=== PATIENT | female | born 1975 | race Two or more races ===

== ENCOUNTER 2018-09-29 20:40 | Emergency (ER) | payer OTHER ==
--- NOTE | 2018-09-29 20:54 | EDPHY ---
H & P Time Seen by Provider: 09/29/18 20:53 Constitutional: Initial Vital Signs Temperature (C) 36.7 C 09/29/18 20:52 Heart Rate 102 H 09/29/18 20:52 Respiratory Rate 16 09/29/18 20:52 Blood Pressure 158/107 H 09/29/18 20:52 O2 Sat (%) 96 09/29/18 20:52 O2 Delivery Mode Room Air Allergies/Adverse Reactions: No Known Allergies Allergy (Unverified 09/29/18 20:58) Home Medications: Medication Instructions Recorded Cephalexin [Keflex (RX)] 500 mg PO TID #30 cap 09/29/18 Fluconazole 150 mg PO DAILY #7 tablet 09/29/18 Medical Decision Making ED Course/Re-evaluation: CHIEF COMPLAINT: Suprapubic pain. HISTORY OF PRESENT ILLNESS: This patient is a 43 year old female who presents with lower abdominal and suprapubic pain ongoing for five days. She has a sensation of pressure in her suprapubic area which sometimes radiates to her low back. She notes has had similar symptoms intermittently for many years. She additionally notes this sometimes seems associated with her scar from her cesarian section. She has been evaluated at [facility] in the past but these visits were inconclusive. Two days ago had vaginal discharge similar to fungal discharge. She does have burning discomfort in her vaginal area. She denies dysuria. She has tried OTC treatments, but these have not helped much. She denies fever, nausea, vomiting , diarrhea, hematuria, or other associated symptoms. REVIEW OF SYSTEMS: A comprehensive 10 system review of systems is otherwise negative aside from elements mentioned in the history of present illness and medical decision making. PHYSICAL EXAM: HR, BP, O2 Sat, RR. Temp noted General Appearance: Alert, well hydrated, appropriate, and non-toxic appearing. Head: Atraumatic without scalp tenderness or obvious injury Eyes: Pupils equal, round, reactive to light and accommodation, EOMI, no trauma , no injection. Ears: Clear bilaterally, no perforation, normal landmarks Nose: Atraumatic, no rhinorrhea, clear. Throat: There is no erythema or exudates, no lesions, normal tonsils, mucus membranes moist. Neck: Supple, nontender, no lymphadenopathy. Respiratory: No retractions, no distress, no wheezes, and no accessory muscle use. Lungs are clear to auscultation bilaterally. Cardiovascular: Regular rate and rhythm, no murmurs, rubs, or gallops. Bilateral carotid, radial, dorsalis pedis, and posterior tibial pulses intact. Good capillary refill all extremities. Gastrointestinal: Suprapubic tenderness. Abdomen is soft, non-distended, no masses, no rebound, no guarding, no peritoneal signs. Musculoskeletal: Normal active ROM of all extremities, atraumatic. Neurological: Alert, appropriate, and interactive. The patient has normal DTRs and non-focal cranial nerves, motor, sensory, and cerebellar exam. Skin: No rashes, good turgor, no nodules on palpation. Past medical history: Healthy Past surgical history: Cesarian section Family history: Noncontributory Social history: . Family at bedside. [place]z speaking. DIFFERENTIAL DIAGNOSIS: The differential diagnosis for the patient's abdominal pain included but was not limited to ovarian cyst, pelvic inflammatory disease, ovarian torsion, urinary tract infection, ectopic , cholecystitis, and appendicitis. MEDICAL DECISION MAKIN43 year old female presents with suprapubic pain and fungal infection symptoms. She is tender over her bladder on exam. Plan to administer 150mg PO fluconazole for her yeast infection. Plan for UA to r/o UTI. UTI positive for UA. Reassessed. Discussed laboratory results. Plan to discharge home in good condition with prescription for fluconazole and Keflex for relief of yeast infection and UTI symptoms. We will administer her first dose of Keflex here prior to discharge. She will follow up with her primary care provider as scheduled tomorrow. Follow up and return precautions discussed. She is comfortable with this plan. We will give a take-home pack of [place] as well for severe pain. - Data Points Laboratory Results: 09/29/18 21:01 Urine Color YELLOW Urine Appearance CLEAR Urine pH 5.0 (5.0-7.5) Ur Specific [place] 1.019 (1.002-1.030) Urine Protein NEGATIVE (NEGATIVE) Urine Ketones NEGATIVE (NEGATIVE) Urine Blood 1+ H (NEGATIVE) Urine Nitrate NEGATIVE (NEGATIVE) Urine Bilirubin NEGATIVE (NEGATIVE) Urine Urobilinogen NEGATIVE EU EU (0.2-1.0) Ur Leukocyte Esterase NEGATIVE (NEGATIVE) Urine RBC 1-3 /hpf /hpf (0-3) Urine WBC 1-3 /hpf /hpf (0-3) Ur Epithelial Cells 1+ /lpf /lpf (NONE-1+) Urine Bacteria TRACE /hpf H /hpf (NONE SEEN) Urine Mucus TRACE /lpf /lpf (NONE-1+) Urine Glucose NEGATIVE (NEGATIVE) Departure - Departure Disposition: Home, Routine, Self-Care Clinical Impression: Yeast infection Urinary tract infection Qualifiers: Urinary tract infection type: acute cystitis Hematuria presence: with hematuria Qualified Code(s): N30.01 - Acute cystitis with hematuria Condition: Good Instructions: Urinary Tract Infection in Women (ED), Yeast Infection (ED) Additional Instructions: Follow up with [facility] tomorrow as scheduled. Take fluconazole as prescribed. Take Keflex as prescribed. You may take [place] as prescribed as needed for severe pain. Return to the Emergency Department for fever, worsening pain, flank pain, or failure to improve in 2-3 days. Referrals: Barbara Guzman PA [Primary Care Provider] - As per Instructions Prescriptions: Cephalexin [Keflex (RX)] 500 mg PO TID #30 cap Fluconazole 150 mg PO DAILY #7 tablet Report Scribed for: Arnaud Rojas Report Scribed by: Lisa Garcia Date of Report: 09/29/18 Time of Report: 21:49
[2018-09-29] MEDS ORDERED: CEPHALEXIN 500 MG CAP PO ONE (21:43)
[2018-09-29] MEDS ORDERED: FLUCONAZOLE 150 MG TAB PO ONE (21:43)
[2018-09-29] MEDS ORDERED: HYDROCOD/APAP 5/325 PREPACK#6 BTL TAKEHOME ONE (21:46)
[2018-09-29 22:07] VITALS: BP 105/67
== END 2018-09-29 22:07 | disposition home or self-care (01) ==
DX: B37.9 Candidiasis, unspecified (principal); N30.01 Acute cystitis with hematuria